=== PATIENT | male | born 1985 | race African-American/Black ===

== ENCOUNTER 2022-03-07 17:47 | Emergency (ER) | payer BC ==
[~2022-03-07] VITALS: Wt 97.5 kg
[2022-03-07] MEDS ORDERED: AMOX-CLAV 875-1 EACH PO (18:20)
== END 2022-03-07 18:25 | disposition home or self-care (01) ==
LOC: ED 17:47
DX: J32.8 Other chronic sinusitis (principal); H66.92 Otitis media, unspecified, left ear

== ENCOUNTER 2022-12-15 06:51 | Emergency (ER) | payer OTHER ==
[~2022-12-15] VITALS: Ht 177.8 cm; Wt 95.3 kg
[~2022-12-15 06:51] MED LIST: AMOX-CLAV 875-1 EACH PO
== END 2022-12-15 07:23 | disposition home or self-care (01) ==
LOC: ED 06:51
DX: B35.3 Tinea pedis (principal); Z98.890 Other specified postprocedural states